=== PATIENT | female | born 1940 | race Caucasian/White ===

== ENCOUNTER 2018-06-12 16:20 | Inpatient (IN) | payer MEDICARE, BC ==
[2018-06-12] MEDS ORDERED: Furosemide 40 MG/4 ML VIAL IVPUSH ONE (19:22)
[2018-06-12] MEDS ORDERED: Sodium Chloride 0.9% 50 ML IV SCH (19:30)
[2018-06-12] MEDS ORDERED: Furosemide 40 MG/4 ML VIAL ONE (19:55)
[2018-06-12] MEDS: Levofloxacin/Dextrose 5%-Water 750 MG in Premix Bag 1 BAG IV SCH (20:30)
[2018-06-12] MEDS ORDERED: Sodium Chloride 0.9% 1,000 ML IV SCH (20:37)
--- NOTE | 2018-06-12 23:42 | ER ---
HPI: A 77-year-old lady here with complaints of shortness of breath that has been ongoing for the last several days, getting worse. She states she really has not felt good for at least a couple of months. The patient has been coughing. Her daughter tells me that she had a pleural effusion last summer and it was drained in early March, but it did not really seem to help the patient. She has been a long-term smoker. The patient states that she gets very short of breath with any kind of movement. She is finding it hard to do just basic activities lately. Her appetite has been quite reduced, and she states it is hard to get enough air on a regular basis. PAST MEDICAL HISTORY: Hypertension and COPD. The patient's daughter tells me that she has not been seen for many years until the problems that she had this summer with which ended up being a scarring of the lungs and pleural effusion. She has been followed by a motorman/woman in [place] and in fact has an appointment there next Saturday for PFTs and an echocardiogram. The patient tells me that she just quit smoking again today. OBJECTIVE: GENERAL APPEARANCE: The patient is awake, she was in mild respiratory distress initially, but upon arrival, oxygen was applied at 3 L per nasal cannula. The patient's initial sats are 88% with the O2 applied it climbed up into the mid 90s. VITAL SIGNS: Blood pressure 163/71, respirations 36 initially, pulse 82, temp 100.1. Physical exam, oral mucous membranes are slightly dry. Tonsils are not enlarged or injected. Pharynx not inflamed. NECK: Supple. LUNGS: Reveals rhonchi throughout the lung gomez. I do not hear any wheezes. There is significantly reduced air exchange throughout the lung gomez. ABDOMEN: Soft, nontender. SKIN: Warm and dry. CARDIAC: Heart sounds distinct. S1, S2 present. No murmurs noted. LABORATORY DATA: Labs today include a CBC with a white count of 10.8; neutrophils are elevated at 79.2, resulting in a left shift. Comprehensive metabolic panel shows a sodium level of 132, slightly low; potassium is 5.3, slightly high. Kidney function, BUN is 28, creatinine 1.5, GFR is 33. Liver panel is normal. CT of the chest was obtained tonight showing a moderate left pleural effusion again and a new small right pleural effusion. There is significant atelectasis bilaterally which include rounded atelectasis which is hard to evaluate the underlying lung. There is also extensive calcified pleural plaque in the right hemithorax consistent with prior asbestos exposure. DIAGNOSES: 1. Chronic obstructive pulmonary disease. 2. Possible pneumonia. 3. Pleural effusions bilaterally with history of the same. TREATMENT PLAN: We will admit the patient for inpatient treatment. She will be started on IV antibiotics. I will give her some Lasix and see we can pull some of the fluid off her system with that, and the patient will be monitored closely. She will be given some IV fluids as well and further evaluation can be made over the course of the next day or so depending on if she responds to this initial treatment plan. CRS/MODL /[id number]
--- NOTE | 2018-06-13 01:12 | HP ---
HISTORY OF PRESENT ILLNESS: She is admitted through the emergency room as a direct admit for COPD, shortness of breath, pleural effusions, and weakness. The patient has been having problems with shortness of breath and weakness for several weeks. It has been slowly getting worse. She did have a pleural effusion in the right lung which was drained in March, but she and her daughter tell me that this did not seem to help her overall condition. She seems like she is slowly getting worse. She has been following Pulmonology in [place] and has an appointment next Saturday for pulmonary function testing and an echocardiogram. Labs done today reveal the patient has a left shift. She has a slightly low sodium level, a slightly high potassium level. Kidney function shows a BUN of 28, creatinine 1.5. She will be admitted. IV antibiotics will be started and a low rate of normal saline will be started at 50 mL/hour. I will try the patient on a dose of Lasix tonight and see if it helps with the rhonchi that was noticed in her lungs, and further decisions can be made tomorrow if she does not respond to the initial treatment. OBJECTIVE: GENERAL APPEARANCE: The patient is awake. She is pleasant. VITAL SIGNS: With oxygen on, her sats are good in the mid 90s; without it, they are in the upper 80s. LUNGS: Upon admission, lung exam reveals rhonchi are continuing to be present throughout the lung gomez. There is significantly reduced air exchange. CARDIAC: Heart sounds distinct without murmurs. SKIN: Warm and dry. ABDOMEN: Soft, nontender. HEENT: Oral mucous membranes are dry. Again, we will see how the patient responds to the initial treatment tonight, and further decisions can be made tomorrow as needed. CRS/MODL
[2018-06-13] MEDS: Sodium Chloride 0.9% 500 ML IV SCH ×2 (07:37→23:23)
[2018-06-13] MEDS ORDERED: Non-Formulary Medication 1 Each (Lisinopril [Lisinopril] 20 MG) PO SCH (08:00)
--- NOTE | 2018-06-13 11:36 | PCM.PN ---
- General Info Date of Service: 06/13/18 Admission Dx/Problem (Free Text): COPD, pleural effusion, shortness of breath. Subjective Update: States she slept well and if feeling some better. - Review of Systems General: Reports: No Symptoms HEENT: Reports: No Symptoms, Glasses Pulmonary: Reports: Shortness of Breath, Cough Cardiovascular: Reports: No Symptoms Gastrointestinal: Reports: No Symptoms Musculoskeletal: Reports: No Symptoms Skin: Reports: No Symptoms Neurological: Reports: No Symptoms Psychiatric: Reports: No Symptoms - Patient Data Vitals - Most Recent: Last Vital Signs Temp 97.3 F 06/12/18 20:15 Pulse 102 H 06/12/18 20:15 Resp 18 06/12/18 20:15 BP 140/73 06/12/18 20:15 Pulse Ox 97 06/12/18 20:15 Weight - Most Recent: 140 lb I&O - Last 24 Hours: Intake & Output 06/12/18 06/13/18 06/13/18 22:59 06:59 14:59 Intake Total 210 Balance 210 Lab Results Last 24 Hours: Laboratory Results - last 24 hr 06/12/18 06/12/18 06/12/18 Range/Units 17:10 17:10 17:10 WBC 10.8 D (4.0-11.0) K/uL RBC 5.36 (3.80-5.80) M/uL Hgb 15.9 (11.5-16.5) g/dL Hct 50.2 H (37.0-47.0) % MCV 94 (76-96) fL MCH 29.7 (27.0-32.0) pg MCHC 31.7 (31.0-35.0) g/dL RDW 16.4 H (11.0-16.0) % Plt Count 305 (150-500) K/uL MPV 9.4 (6.0-10.0) fL Neut % (Auto) 79.2 H (45.0-70.0) % Lymph % (Auto) 9.9 L (20.0-40.0) % [place] % (Auto) 10.0 (3.0-10.0) % Eos % (Auto) 0.3 L (1.0-5.0) % Baso % (Auto) 0.6 H (0.0-0.5) % Neut # (Auto) 8.53 H (2.00-7.50) K/uL Lymph # (Auto) 1.06 L (1.50-4.00) K/uL [place] # (Auto) 1.08 H (0.20-0.80) K/uL Eos # (Auto) 0.03 L (0.04-0.40) K/uL Baso # (Auto) 0.06 (0.02-0.10) K/uL Sodium 132 L (136-145) mmol/L Potassium 5.3 H D (3.5-5.1) mmol/L Chloride 93 L (98-107) mmol/L Carbon Dioxide 34.0 H (21.0-32.0) mmol/L Anion Gap 10.3 (5.0-15.0) mmol/L BUN 28 H D (8-26) mg/dL Creatinine 1.50 H D (0.55-1.02) mg/dL Est Cr Clr Drug Dosing TNP Estimated GFR (MDRD) 33 L (>60) MLS/MIN BUN/Creatinine Ratio 18.7 (6-25) Glucose 144 H D (74-100) mg/dL Lactic Acid 1.11 (0.90-1.70) mmol/L Calcium 8.5 (8.5-10.1) mg/dL Total Bilirubin 0.5 (0.0-1.0) mg/dL AST 23 (15-37) U/L ALT 22 (12-78) U/L Alkaline Phosphatase 67 (46-116) U/L Total Protein 7.2 (6.4-8.2) g/dL Albumin 3.2 L (3.4-5.0) g/dL Globulin 4.0 (2.2-4.2) g/dL Albumin/Globulin Ratio 0.8 (0.8-2.0) 06/13/18 06/13/18 Range/Units 09:10 09:10 WBC 14.3 H D (4.0-11.0) K/uL RBC 5.11 (3.80-5.80) M/uL Hgb 15.2 (11.5-16.5) g/dL Hct 48.8 H (37.0-47.0) % MCV 96 (76-96) fL MCH 29.7 (27.0-32.0) pg MCHC 31.1 (31.0-35.0) g/dL RDW 16.3 H (11.0-16.0) % Plt Count 271 (150-500) K/uL MPV 9.2 (6.0-10.0) fL Neut % (Auto) 86.4 H (45.0-70.0) % Lymph % (Auto) 4.7 L (20.0-40.0) % [place] % (Auto) 8.2 (3.0-10.0) % Eos % (Auto) 0.4 L (1.0-5.0) % Baso % (Auto) 0.3 (0.0-0.5) % Neut # (Auto) 12.36 H (2.00-7.50) K/uL Lymph # (Auto) 0.67 L (1.50-4.00) K/uL [place] # (Auto) 1.17 H (0.20-0.80) K/uL Eos # (Auto) 0.06 (0.04-0.40) K/uL Baso # (Auto) 0.05 (0.02-0.10) K/uL Sodium 137 (136-145) mmol/L Potassium 4.1 D (3.5-5.1) mmol/L Chloride 95 L (98-107) mmol/L Carbon Dioxide 41.3 H D (21.0-32.0) mmol/L Anion Gap 4.8 L (5.0-15.0) mmol/L BUN 20 D (8-26) mg/dL Creatinine 1.04 H D (0.55-1.02) mg/dL Est Cr Clr Drug Dosing 36.28 Estimated GFR (MDRD) 51 L (>60) MLS/MIN BUN/Creatinine Ratio 19.2 (6-25) Glucose 151 H (74-100) mg/dL Lactic Acid (0.90-1.70) mmol/L Calcium 8.0 L (8.5-10.1) mg/dL Total Bilirubin (0.0-1.0) mg/dL AST (15-37) U/L ALT (12-78) U/L Alkaline Phosphatase (46-116) U/L Total Protein (6.4-8.2) g/dL Albumin (3.4-5.0) g/dL Globulin (2.2-4.2) g/dL Albumin/Globulin Ratio (0.8-2.0) Med Orders - Current: Current Medications Albuterol/Ipratropium (Duoneb 3.0-0.5 Mg/3 Ml) 3 ml NEB Q4H PRN PRN Reason: Shortness of Breath Levofloxacin/Dextrose 750 mg/ (Premix) 150 mls @ 150 mls/hr IV Q24H [facility] Stop: 06/19/18 19:31 Last Admin: 06/12/18 20:30 Dose: 150 mls/hr Sodium Chloride (Normal Saline) 500 mls @ 50 mls/hr IV ASDIRECTED [facility] Last Admin: 06/13/18 07:37 Dose: 50 mls/hr Non-Formulary Medication (Lisinopril [Lisinopril]) 20 mg PO DAILY [facility] Last Admin: 06/13/18 09:15 Dose: 20 mg Discontinued Medications Furosemide (Lasix) 40 mg IVPUSH ONETIME ONE Stop: 06/12/18 19:23 Last Admin: 06/12/18 19:40 Dose: 40 mg Furosemide (Lasix) Confirm Administered Dose 40 mg .ROUTE .STK-MED ONE Stop: 06/12/18 19:56 Last Admin: 06/12/18 20:37 Dose: Not Given Sodium Chloride (Normal Saline) 50 mls @ 50 mls/hr IV ASDIRECTED [facility] Sodium Chloride (Normal Saline) 1,000 mls @ 50 mls/hr IV ASDIRECTED [facility] - Exam Quality Assessment: Supplemental Oxygen General: Alert, Oriented, Cooperative HEENT: Mucous Membr. Moist/[place] Neck: Supple, Trachea Midline Lungs: Normal Respiratory Effort, Decreased Breath Sounds Cardiovascular: Regular Rate, Murmurs (systolic murmur noted.) GI/Abdominal Exam: Normal Bowel Sounds, Soft, Non-Tender Extremities: Normal Inspection, Non-Tender, No Pedal Edema, Normal Capillary Refill Skin: Warm, Dry Psy/Mental Status: Alert, Normal Affect, Normal Mood - Problem List & Annotations (1) COPD (chronic obstructive pulmonary disease) SNOMED Code(s): 03483558 Code(s): J44.9 - CHRONIC OBSTRUCTIVE PULMONARY DISEASE, UNSPECIFIED Status : Acute Current Visit: Yes (2) Pleural effusion SNOMED Code(s): 91853373 Code(s): J90 - PLEURAL EFFUSION, NOT ELSEWHERE CLASSIFIED Status: Acute Current Visit: Yes (3) Weakness SNOMED Code(s): 07354096 Code(s): R53.1 - WEAKNESS Status: Acute Current Visit: Yes - Problem List Review Problem List Initiated/Reviewed/Updated: Yes - Assessment Assessment:: COPD exacerbation and pleural effusion with weakness and shortness of breath. - Plan Plan:: COPD exacerbation and plerual effusion: Levofloxacin 750 mg IV Nebulizer as needed prn. Chest x-ray today and in am CBC today and in am. I did contact the pulmonary department at [place], [place]. The provider isn't in today, but the nurse did call and states her phone number is [phone] and name is Hortencia. States pt was scheduled for echo and PFT on Saturday and would be unable to complete this if she is having symptoms. Pt did have a thoracentesis on 04-09-2018. I did consult Dr Torres in regards to pt and updated POC to include x-ray today and in am and repeat CBC in am. Pt may need a change in her antibiotic if the WBC is still elevated. I did visit with the pt and daughter about pt status and POC.
[2018-06-13] MEDS: Albuterol/Ipratropium 3.0-0.5 MG/3 ML Neb Soln NEB PRN ×2 (15:27→22:58)
[2018-06-13] MEDS: Levofloxacin/Dextrose 5%-Water 750 MG in Premix Bag 1 BAG IV SCH ×2 (15:28→19:06)
[2018-06-14] MEDS ORDERED: Lisinopril 20 MG Tab PO SCH (08:00)
[2018-06-14] MEDS: Sodium Chloride 0.9% 500 ML IV SCH (09:30)
--- NOTE | 2018-06-14 11:37 | PCM.DCSUM1 ---
Discharge Summary - Hospital Course HPI Initial Comments: This 77 yr female presents with COPD and pleural effusion with shortness of breath and weakness. BP today 100/70 to 120/50, SpO2 =90-94% and carbon dioxide of 42.9 today. X-ray today with left lung full today and yesterday was about 50%. Discussed pt status with Dr Torres and transfer to facility for pulmonology assist. Pt is alert and has had breakfast today and sitting in the chair. Discussed pt transfer to one call in [facility] Dr. Guerrier states he is able to accept the transfer. Pt will go by road ambulance with RN available. Diagnosis: Stroke: No - Discharge Data Discharge Date: 06/14/18 Discharge Disposition: DC/Tfer to Acute Hospital 02 Condition: Fair - Discharge Diagnosis/Problem(s) (1) COPD (chronic obstructive pulmonary disease) SNOMED Code(s): 53817200 ICD Code: J44.9 - CHRONIC OBSTRUCTIVE PULMONARY DISEASE, UNSPECIFIED Status : Acute Current Visit: Yes (2) Pleural effusion SNOMED Code(s): 68067857 ICD Code: J90 - PLEURAL EFFUSION, NOT ELSEWHERE CLASSIFIED Status: Acute Current Visit: Yes (3) Weakness SNOMED Code(s): 54402140 ICD Code: R53.1 - WEAKNESS Status: Acute Current Visit: Yes - Patient Instructions Diet: Heart Healthy Diet Driving: Do Not Drive - Discharge Plan *PRESCRIPTION DRUG MONITORING PROGRAM REVIEWED*: Not Applicable *COPY OF PRESCRIPTION DRUG MONITORING REPORT IN PATIENT FAYE: Not Applicable Home Medications: Home Meds Lisinopril 20 mg PO DAILY 06/12/18 [History] Patient Handouts: Pleural Effusion, Pulmonary Function Tests Forms: ED Department Discharge Referrals: PCP,None [Primary Care Provider] - - General Info Date of Service: 06/14/18 Admission Dx/Problem (Free Text: COPD, pleural effusion, shortness of breath. Subjective Update: Pt states she is short of breath today, but she states she slept well and had her breakfast. has been in to see a few times today. Functional Status: Reports: Pain Controlled, Tolerating Diet, Incentive Spirometry - Review of Systems General: Reports: Weakness HEENT: Reports: No Symptoms Pulmonary: Reports: Shortness of Breath, Cough Cardiovascular: Reports: Dyspnea on Exertion. Denies: Chest Pain Gastrointestinal: Reports: No Symptoms Genitourinary: Reports: No Symptoms Musculoskeletal: Reports: No Symptoms Skin: Reports: No Symptoms Neurological: Reports: No Symptoms Psychiatric: Reports: Other (intermittent confusion) - Patient Data Vitals - Most Recent: Last Vital Signs Temp 99.3 F 06/14/18 11:25 Pulse 99 06/14/18 11:25 Resp 24 H 06/14/18 11:25 BP 116/44 L 06/14/18 11:25 Pulse Ox 92 L 06/14/18 11:25 Weight - Most Recent: 140 lb I&O - Last 24 hours: Intake & Output 06/13/18 06/14/18 06/14/18 22:59 06:59 14:59 Intake Total 720 Output Total 550 Balance 170 Lab Results - Last 24 hrs: Laboratory Results - last 24 hr 06/13/18 06/14/18 06/14/18 Range/Units 15:56 10:30 10:40 WBC 10.5 D (4.0-11.0) K/uL RBC 4.81 (3.80-5.80) M/uL Hgb 14.3 (11.5-16.5) g/dL Hct 48.4 H (37.0-47.0) % MCV 101 H (76-96) fL MCH 29.7 (27.0-32.0) pg MCHC 29.5 L (31.0-35.0) g/dL RDW 16.4 H (11.0-16.0) % Plt Count 209 D (150-500) K/uL MPV 9.4 (6.0-10.0) fL Neut % (Auto) 83.4 H (45.0-70.0) % Lymph % (Auto) 5.4 L (20.0-40.0) % [place] % (Auto) 10.7 H (3.0-10.0) % Eos % (Auto) 0.3 L (1.0-5.0) % Baso % (Auto) 0.2 (0.0-0.5) % Neut # (Auto) 8.78 H (2.00-7.50) K/uL Lymph # (Auto) 0.57 L (1.50-4.00) K/uL [place] # (Auto) 1.13 H (0.20-0.80) K/uL Eos # (Auto) 0.03 L (0.04-0.40) K/uL Baso # (Auto) 0.02 (0.02-0.10) K/uL Sodium 140 (136-145) mmol/L Potassium 4.6 (3.5-5.1) mmol/L Chloride 99 (98-107) mmol/L Carbon Dioxide 42.9 H (21.0-32.0) mmol/L Anion Gap 2.7 L (5.0-15.0) mmol/L BUN 12 D (8-26) mg/dL Creatinine 0.71 D (0.55-1.02) mg/dL Est Cr Clr Drug Dosing 53.15 mL/min Estimated GFR (MDRD) > 60 (>60) MLS/MIN BUN/Creatinine Ratio 16.9 (6-25) Glucose 196 H (74-100) mg/dL Calcium 7.8 L (8.5-10.1) mg/dL Urine Color Yellow Urine Appearance Clear (CLEAR) Urine pH 5.5 (5.0-8.0) Ur Specific [place] 1.025 (1.003-1.030) Urine Protein Negative (NEGATIVE) mg/dL Urine Glucose (UA) Negative (NEGATIVE) mg/dL Urine Ketones Negative (NEGATIVE) mg/dL Urine Occult Blood Moderate H (NEGATIVE) Urine Nitrite Negative (NEGATIVE) Urine Bilirubin Negative (NEGATIVE) Urine Urobilinogen 0.2 (0.2-1.0) E.U./dL Ur Leukocyte Esterase Small H (NEGATIVE) Urine RBC 30-40 H /HPF Urine WBC 20-30 H /HPF Ur Squamous Epith Cells Few /HPF Med Orders - Current: Current Medications Albuterol/Ipratropium (Duoneb 3.0-0.5 Mg/3 Ml) 3 ml NEB Q4H PRN PRN Reason: Shortness of Breath Last Admin: 06/13/18 22:58 Dose: 3 ml Levofloxacin/Dextrose 750 mg/ (Premix) 150 mls @ 150 mls/hr IV Q24H [facility] Stop: 18 19:31 Last Admin: 06/13/18 19:06 Dose: Not Given Sodium Chloride (Normal Saline) 500 mls @ 50 mls/hr IV ASDIRECTED [facility] Last Admin: 06/14/18 09:30 Dose: 50 mls/hr Lisinopril (Prinivil) 20 mg PO DAILY [facility] Last Admin: 06/14/18 08:30 Dose: Not Given Discontinued Medications Furosemide (Lasix) 40 mg IVPUSH ONETIME ONE Stop: 06/12/18 19:23 Last Admin: 06/12/18 19:40 Dose: 40 mg Furosemide (Lasix) Confirm Administered Dose 40 mg .ROUTE .STK-MED ONE Stop: 06/12/18 19:56 Last Admin: 06/12/18 20:37 Dose: Not Given Sodium Chloride (Normal Saline) 50 mls @ 50 mls/hr IV ASDIRECTED [facility] Sodium Chloride (Normal Saline) 1,000 mls @ 50 mls/hr IV ASDIRECTED [facility] Non-Formulary Medication (Lisinopril [Lisinopril]) 20 mg PO DAILY [facility] Last Admin: 06/13/18 09:15 Dose: 20 mg - Exam Quality Assessment: Reports: Supplemental Oxygen, Urine Catheter General: Reports: Alert, Oriented, Cooperative HEENT: Reports: Mucous Membr. Moist/[place] Neck: Reports: Supple, Trachea Midline Lungs: Reports: Decreased Breath Sounds Cardiovascular: Reports: Regular Rate, Regular Rhythm, Murmurs GI/Abdominal Exam: Soft, Non-Tender Back Exam: Reports: Normal Inspection, Full Range of Motion Extremities: Normal Inspection, Normal Range of Motion, No Pedal Edema, Normal Capillary Refill, Other (bruising to left arm, possibly from peripheral venipuncture.) Skin: Reports: Warm, Dry Neurological: Reports: No New Focal Deficit Psy/Mental Status: Reports: Alert, Normal Affect, Normal Mood
[2018-06-14] MEDS: Albuterol/Ipratropium 3.0-0.5 MG/3 ML Neb Soln NEB PRN (11:39)
[2018-06-14] MEDS ORDERED: Morphine 10 MG/ML Syringe ONE (12:01)
[2018-06-14] MEDS ORDERED: LORazepam 2 MG/ML SDV ONE (12:01)
[2018-06-14] MEDS ORDERED: Albuterol 0.083% 2.5 MG/3 ML Neb Soln ONE (12:20)
--- NOTE | 2018-06-15 09:42 | CR ---
DATE OF SERVICE: 06/13/18 CLINICAL DATA: shortness of breath PA AND LATERAL CHEST: Comparison is made to a prior exam dated 06/12/18. There is progressive infiltrate and consolidation in the right lower lung and within the left mid and lower lung. There are persistent bilateral pleural effusions. The left has increased. The exam is otherwise unchanged. Continued follow-up is recommended. [id number] [facility]
--- NOTE | 2018-06-15 09:47 | CT ---
DATE OF SERVICE: 06/12/18 CLINICAL DATA: SOB. Lung Congestion UNENHANCED CHEST CT: Multi slice acquisition through the chest without IV contrast was performed. Comparison is made to a prior enhanced chest CT dated 03/27/18. There is a small left pleural effusion. It has decreased in volume from the prior study. There is a right pleural effusion on today's exam. It was not present on the prior exam. The majority of the fluid appears to be loculated within the major fissure on the right. There are persistent areas of consolidation within the lingular segment of the left upper lobe and left lower lobe with atelectasis at the left lower lobe. This does not appear significantly changed from the prior study. There is also an area of atelectasis and consolidation within the right lung base posteriorly. Pneumonia should be considered. The heart remains enlarged, unchanged. No hilar or mediastinal adenopathy. The exam is otherwise unchanged from the prior. [id number] [facility]
--- NOTE | 2018-06-15 09:51 | CR ---
DATE OF SERVICE: 06/14/18 CLINICAL DATA: shortness of breath PA AND LATERAL CHEST: Comparison is made to a prior exam dated 06/13/18. There is progressive consolidation of the left lung with near total opacification of the left hemithorax and no residual aerated lung on the left. There is also progressive infiltrate and consolidation in the right lung base. There is a persistent small right pleural effusion. The exam is otherwise unchanged from the previous. [id number] [facility]
== END 2018-06-14 12:24 | DRG 191 ==
LOC: LB.ED 16:20 → LB.MS 19:10 → LB.ED 19:30 → LB.MS 20:06 → UNDOADMIN 20:06
PROVIDERS: ADMIT Nurse Practitioner Family; ATTEND Nurse Practitioner Family
DX: J44.0 Chronic obstructive pulmonary disease with (acute) lower respiratory infection (principal); J18.9 Pneumonia, unspecified organism; J44.1 Chronic obstructive pulmonary disease with (acute) exacerbation; J90 Pleural effusion, not elsewhere classified; F17.200 Nicotine dependence, unspecified, uncomplicated; R06.03 Acute respiratory distress; R05 Cough; R06.02 Shortness of breath; I10 Essential (primary) hypertension; R53.1 Weakness; Z79.899 Other long term (current) drug therapy
CPT/HCPCS: 36415; 51702; 71046; 71250; 80048; 80053; 81001; 83605; 85025; 87086; 99285-25; A0425; A0429; A9270-GY; J1940; J1956; J7050; J7620-GY

== ENCOUNTER 2019-12-23 19:01 | Inpatient (IN) | payer MEDICARE, BC, OTHER ==
[2019-12-23] MEDS ORDERED: Azithromycin 500 MG AdvVial IV SCH (21:45)
[2019-12-23] MEDS ORDERED: Sodium Chloride 0.9% 1,000 ML IV SCH (21:45)
--- NOTE | 2019-12-23 22:13 | ADMIT ---
HISTORY OF PRESENT ILLNESS: This 79-year-old lady was admitted through the emergency room with diagnosis of pneumonia, causing hypoxia and mild dehydration and weakness. The patient came in a groggy state with duskiness of her face and hands. Nursing staff applied oxygen at 5 L and within minutes, the patient became alert and had better color in her hands and she has been maintaining O2 sats around 91% with 5 L of oxygen. Chest x-ray shows what looks like an infiltrate in the left lower lobe with a small effusion in the right lower lobe and labs show a slightly elevated white count and elevated neutrophils. Some labs are still pending that include a basic metabolic panel and a BNP. The patient will be admitted for IV antibiotics, starting her on Rocephin and Zithromax. We will give her a low rate of normal saline at 30 mL an hour and we will keep her on oxygen overnight monitoring her sats. The patient has been resting comfortably since she has the oxygen applied other than an occasional coarse sounding cough. Vital signs show an initial blood pressure of 122/55, pulse 96, respiration started around at 34, but improved after monitoring the patient for a while. CRS/MODL /[id number]
--- NOTE | 2019-12-23 22:13 | PN ---
DATE OF VISIT: 12/23/2019 HISTORY OF PRESENT ILLNESS: An 79-year-old lady who comes in with her son and other family members with complaints of feeling horrible. She has been short of breath. Family members tell me that she, they have noticed, is dusky, sensation to her hands and her face, and her hands have been cool. She seems sleepy and tired upon arriving to the emergency room. Nursing staff could not get an O2 saturation initially and they applied oxygen at 5 L per nasal cannula, and the patient perked up within minutes. By the time I got to the emergency room, the patient is awake and talking, telling me she does not feel well and has not for several days. Her son tells me that she usually smokes 2 or 3 packs of cigarettes a day. She rolls her own cigarettes. The last 4 days, she has not had the energy to this. The patient does have history of COPD; history of pleural effusion, needing thoracentesis on a couple of different occasions; and history of weakness as well as hypertension. OBJECTIVE: GENERAL APPEARANCE: The patient is awake. She is pleasant and talkative. She has a congested-sounding occasional cough. VITAL SIGNS: Show blood pressure is 122/55, O2 sats are 91% on 5 L, respirations 34, pulse 96. LUNGS: Have severely reduced air exchange throughout the lung gomez. I can hear a little bit of rhonchi in both bases. I do not hear any obvious wheezing. CARDIAC: Heart sounds distinct. S1, S2 present. No obvious murmurs noted. HEENT: Oral mucous membranes are dry. ABDOMEN: Soft, nontender. SKIN: Warm and dry. LABORATORY DATA: Labs include a CBC showing a slightly elevated white count of 11.2, neutrophils are also up at 81.6. Basic metabolic panel and a BNP are still pending. A chest x-ray is obtained showing what looks like pneumonia in the left lower lobe with a small effusion in the right lower lobe. DIAGNOSES: 1. Pneumonia. 2. Dehydration. TREATMENT PLAN: The patient is resting quietly at this point. The oxygen has helped her a lot. We had a discussion about treating as an inpatient versus outpatient, but it turns out she does not have oxygen at home, and we cannot send it with her on short notice. Therefore, she will be admitted to the hospital for inpatient treatment, keeping her on oxygen, IV antibiotics, and a small amount of fluid rehydration. CRS/MODL /[id number]
[2019-12-23] MEDS: cefTRIAXone 1 GM in Sodium Chloride 0.9% 50 ML IV SCH (23:06)
[2019-12-23] MEDS: Nicotine 21 MG/24 Hr Patch TRDERM SCH (23:06)
[2019-12-23] MEDS: Azithromycin 500 MG in Sodium Chloride 0.9% 250 ML IV SCH (23:07)
--- NOTE | 2019-12-24 09:07 | PCM.PN ---
- General Info Date of Service: 12/24/19 Admission Dx/Problem (Free Text): Pneumonia Subjective Update: Patient continues to have coarse cough; requiring 35% oxygen via mask to keep SaO2 greater than 90%. Patient confused but at baseline this morning according to nursing. Functional Status: Reports: Pain Controlled - Review of Systems General: Denies: Fever HEENT: Denies: Ear Pain, Eye Pain, Headaches Pulmonary: Reports: Shortness of Breath, Cough, Sputum Cardiovascular: Denies: No Symptoms Gastrointestinal: Denies: No Symptoms Genitourinary: Denies: No Symptoms Musculoskeletal: Denies: No Symptoms Skin: Denies: No Symptoms Neurological: Reports: Confusion - Patient Data Vitals - Most Recent: Last Vital Signs Temp 36.3 C 12/24/19 07:39 Pulse 100 12/24/19 07:39 Resp 22 H 12/24/19 07:39 BP 132/60 12/24/19 07:39 Pulse Ox 84 L 12/24/19 07:39 Weight - Most Recent: 53.705 kg I&O - Last 24 Hours: Intake & Output 12/23/19 12/24/19 12/24/19 22:59 06:59 14:59 Intake Total 440 Balance 440 Lab Results Last 24 Hours: Laboratory Results - last 24 hr 12/23/19 12/23/19 12/23/19 Range/Units 20:39 20:39 20:39 WBC 11.2 H D (4.0-11.0) K/uL RBC 5.42 (3.80-5.80) M/uL Hgb 16.9 H (11.5-16.5) g/dL Hct 53.6 H (37.0-47.0) % MCV 99 H (76-96) fL MCH 31.2 (27.0-32.0) pg MCHC 31.5 (31.0-35.0) g/dL RDW 18.7 H (11.0-16.0) % Plt Count 246 D (150-500) K/uL MPV 9.7 (6.0-10.0) fL Neut % (Auto) 81.6 H (45.0-70.0) % Lymph % (Auto) 8.1 L (20.0-40.0) % [place] % (Auto) 10.1 H (3.0-10.0) % Eos % (Auto) 0.0 L (1.0-5.0) % Baso % (Auto) 0.2 (0.0-0.5) % Neut # (Auto) 9.10 H (2.00-7.50) K/uL Lymph # (Auto) 0.90 L (1.50-4.00) K/uL [place] # (Auto) 1.13 H (0.20-0.80) K/uL Eos # (Auto) 0.00 L (0.04-0.40) K/uL Baso # (Auto) 0.02 (0.02-0.10) K/uL Sodium 138 (136-145) mmol/L Potassium 5.1 D (3.5-5.1) mmol/L Chloride 97 L (98-107) mmol/L Carbon Dioxide 34.2 H (21.0-32.0) mmol/L Anion Gap 11.9 (5.0-15.0) mmol/L BUN 59 H* D (8-26) mg/dL Creatinine 3.10 H* D (0.55-1.02) mg/dL Est Cr Clr Drug Dosing TNP Estimated GFR (MDRD) 14 L (>60) MLS/MIN BUN/Creatinine Ratio 19.0 (6-25) Glucose 116 H (74-100) mg/dL Calcium 8.6 (8.5-10.1) mg/dL B-Natriuretic Peptide 74029 H (0-450) pg/mL 12/24/19 Range/Units 07:45 WBC 12.1 H (4.0-11.0) K/uL RBC 5.34 (3.80-5.80) M/uL Hgb 16.5 (11.5-16.5) g/dL Hct 53.2 H (37.0-47.0) % MCV 100 H (76-96) fL MCH 30.9 (27.0-32.0) pg MCHC 31.0 (31.0-35.0) g/dL RDW 18.6 H (11.0-16.0) % Plt Count 205 (150-500) K/uL MPV 9.8 (6.0-10.0) fL Neut % (Auto) 83.4 H (45.0-70.0) % Lymph % (Auto) 7.1 L (20.0-40.0) % [place] % (Auto) 9.1 (3.0-10.0) % Eos % (Auto) 0.2 L (1.0-5.0) % Baso % (Auto) 0.2 (0.0-0.5) % Neut # (Auto) 10.05 H (2.00-7.50) K/uL Lymph # (Auto) 0.85 L (1.50-4.00) K/uL [place] # (Auto) 1.10 H (0.20-0.80) K/uL Eos # (Auto) 0.02 L (0.04-0.40) K/uL Baso # (Auto) 0.03 (0.02-0.10) K/uL Sodium (136-145) mmol/L Potassium (3.5-5.1) mmol/L Chloride (98-107) mmol/L Carbon Dioxide (21.0-32.0) mmol/L Anion Gap (5.0-15.0) mmol/L BUN (8-26) mg/dL Creatinine (0.55-1.02) mg/dL Est Cr Clr Drug Dosing Estimated GFR (MDRD) (>60) MLS/MIN BUN/Creatinine Ratio (6-25) Glucose (74-100) mg/dL Calcium (8.5-10.1) mg/dL B-Natriuretic Peptide (0-450) pg/mL Nolan Results Last 24 Hours: Microbiology 12/24/19 08:20 Influenza Type A Antigen Screen - Final Nasopharyngeal Swab NEGATIVE INFLUENZA A VIRUS AG REFERENCE RANGE: NEGATIVE Influenza Type B Antigen Screen - Final NEGATIVE INFLUENZA B VIRUS AG REFERENCE RANGE: NEGATIVE Med Orders - Current: Current Medications Acetaminophen (Tylenol) 650 mg PO Q4H PRN PRN Reason: Pain (Mild 1-3)/fever Albuterol/Ipratropium (Duoneb 3.0-0.5 Mg/3 Ml) 3 ml NEB QID PRN PRN Reason: Shortness Of Breath/wheezing Ceftriaxone Sodium 1 gm/ (Sodium Chloride) 50 mls @ 100 mls/hr IV Q24H [facility] Last Admin: 12/23/19 23:06 Dose: 100 mls/hr Sodium Chloride (Normal Saline) 1,000 mls @ 30 mls/hr IV ASDIRECTED [facility] Azithromycin 500 mg/ Sodium (Chloride) 250 mls @ 250 mls/hr IV Q24H [facility] Last Admin: 12/23/19 23:07 Dose: 250 mls/hr Nicotine (Habitrol) 21 mg TRDERM DAILY [facility] Last Admin: 12/23/19 23:06 Dose: 21 mg Non-Formulary Medication (Lisinopril [Lisinopril]) 20 mg PO DAILY [facility] Discontinued Medications Azithromycin (Zithromax) 500 mg IV Q24H [facility] - Exam Quality Assessment: Supplemental Oxygen General: Alert, Mild Distress HEENT: Pupils Equal, Pupils Reactive, EOMI Neck: Supple Lungs: Decreased Breath Sounds (left side), Rales (scattered in all gomez) Cardiovascular: Regular Rate, Regular Rhythm GI/Abdominal Exam: Soft, Non-Tender, No Distention Extremities: Normal Capillary Refill Skin: Warm, Dry Neurological: Other (baseline confusion) Sepsis Event Note - Evaluation Sepsis Screening Result: No Definite Risk - Focused Exam Vital Signs: Vital Signs Temp Temp Pulse Resp BP Pulse Ox 12/24/19 07:39 36.3 C 100 22 H 132/60 84 L 12/24/19 03:56 36.9 C 100 30 H 131/72 82 L 12/23/19 22:55 36.9 C 30 H 124/63 89 L 12/23/19 21:34 82 L Date Exam was Performed: 12/24/19 Time Exam was Performed: 09:09 - Problem List & Annotations (1) Pneumonia SNOMED Code(s): 912733487 Code(s): J18.9 - PNEUMONIA, UNSPECIFIED ORGANISM Status: Acute Priority: Medium Current Visit: Yes Qualifiers: Laterality: left Lung location: lower lobe of lung - Problem List Review Problem List Initiated/Reviewed/Updated: Yes - My Orders Last 24 Hours: My Active Orders 12/24/19 07:41 CORONAVIRUS COVID-19 PCR PHL [MREF] Stat - Plan Plan:: Oxygen to keep SaO2 greater than 90% COVID and influenza samples collected Continue with same plan
[2019-12-24] MEDS: Nicotine 21 MG/24 Hr Patch TRDERM SCH (09:20)
[2019-12-24] MEDS: Acetaminophen 325 MG Tab PO PRN (09:22)
[2019-12-24] MEDS ORDERED: Sodium Chloride 0.9% 1,000 ML IV SCH (10:30)
[2019-12-24] MEDS: Non-Formulary Medication 1 Each (Lisinopril [Lisinopril] 20 MG) PO SCH (13:29)
[2019-12-24] MEDS: cefTRIAXone 1 GM in Sodium Chloride 0.9% 50 ML IV SCH (21:30)
[2019-12-24] MEDS: Azithromycin 500 MG in Sodium Chloride 0.9% 250 ML IV SCH (22:29)
--- NOTE | 2019-12-25 00:34 | CR ---
CLINICAL DATA: SOB. AP CHEST, 23 DECEMBER 2019: Comparison is made to a prior exam dated June 14, 2018. The heart is enlarged. The aorta is calcified and ectatic. There are poorly defined infiltrates with consolidation in the right lower lobe and in the left mid and lower lung suspicious for pneumonia. Tumor cannot be excluded. There is pleural thickening and pleural calcification on the right. There is blunting of the left costophrenic angle, consistent with left pleural effusion or pleural scar. No pneumothorax. Job: [id number] MTDD
[2019-12-25] MEDS: Non-Formulary Medication 1 Each (Lisinopril [Lisinopril] 20 MG) PO SCH (10:28)
[2019-12-25] MEDS: Nicotine 21 MG/24 Hr Patch TRDERM SCH (10:42)
[2019-12-25] MEDS: Albuterol/Ipratropium 3.0-0.5 MG/3 ML Neb Soln NEB PRN (10:43)
--- NOTE | 2019-12-25 16:39 | PCM.PN ---
- General Info Date of Service: 12/25/19 Admission Dx/Problem (Free Text): Pneumonia Subjective Update: VSS, afebrile. Continues to have occasional cough but has been able to wean down on supplemental oxygen to 4 L per nasal cannula. Able to transfer with assistance this morning but more sleepy this afternoon requiring the assistance of 2 for transfer. Does respond to questions but does not open her eyes. Functional Status: Reports: Tolerating Diet - Review of Systems General: Denies: Fever HEENT: Reports: No Symptoms Pulmonary: Reports: Cough Cardiovascular: Denies: Chest Pain Gastrointestinal: Denies: Abdominal Pain, Diarrhea, Vomiting Musculoskeletal: Reports: No Symptoms Skin: Reports: No Symptoms Neurological: Reports: No Symptoms - Patient Data Vitals - Most Recent: Last Vital Signs Temp 36.2 C 12/25/19 12:00 Pulse 99 12/25/19 04:00 Resp 12 12/25/19 12:00 BP 100/50 L 12/25/19 12:00 Pulse Ox 96 12/25/19 12:00 Weight - Most Recent: 53.524 kg I&O - Last 24 Hours: Intake & Output 12/25/19 12/25/19 12/25/19 06:59 14:59 22:59 Intake Total 690 Output Total 300 Balance 690 -300 Nolan Results Last 24 Hours: Microbiology 12/24/19 09:55 MRSA Surveillance Culture - Final Axilla, Unspecified NO MRSA ISOLATED Med Orders - Current: Current Medications Acetaminophen (Tylenol) 650 mg PO Q4H PRN PRN Reason: Pain (Mild 1-3)/fever Last Admin: 12/24/19 09:22 Dose: 650 mg Albuterol/Ipratropium (Duoneb 3.0-0.5 Mg/3 Ml) 3 ml NEB QID PRN PRN Reason: Shortness Of Breath/wheezing Last Admin: 12/25/19 10:43 Dose: 3 ml Ceftriaxone Sodium 1 gm/ (Sodium Chloride) 50 mls @ 100 mls/hr IV Q24H [facility] Last Admin: 12/24/19 21:30 Dose: 100 mls/hr Sodium Chloride (Normal Saline) 1,000 mls @ 30 mls/hr IV ASDIRECTED [facility] Azithromycin 500 mg/ Sodium (Chloride) 250 mls @ 250 mls/hr IV Q24H [facility] Last Admin: 12/24/19 22:29 Dose: 250 mls/hr Sodium Chloride (Normal Saline) 1,000 mls @ 250 mls/hr IV ASDIRECTED [facility] Last Admin: 12/24/19 10:54 Dose: 250 mls/hr Nicotine (Habitrol) 21 mg TRDERM DAILY [facility] Last Admin: 12/25/19 10:42 Dose: 21 mg Non-Formulary Medication (Lisinopril [Lisinopril]) 20 mg PO DAILY [facility] Last Admin: 12/25/19 10:28 Dose: Not Given Discontinued Medications Azithromycin (Zithromax) 500 mg IV Q24H [facility] - Exam Quality Assessment: Supplemental Oxygen General: Lethargic HEENT: Pupils Equal, Pupils Reactive, EOMI, Mucous Membr. Moist/[place] Neck: Supple Lungs: Normal Respiratory Effort, Rhonchi Cardiovascular: Regular Rate, Regular Rhythm GI/Abdominal Exam: Soft, Non-Tender, No Distention Skin: Warm, Dry, Intact Neurological: No New Focal Deficit Sepsis Event Note - Evaluation Sepsis Screening Result: No Definite Risk - Focused Exam Vital Signs: Vital Signs Temp Temp Resp BP Pulse Ox 12/25/19 12:00 36.2 C 12 100/50 L 96 12/25/19 07:39 37.1 C 14 112/63 91 L Date Exam was Performed: 12/25/19 Time Exam was Performed: 16:33 - Problem List & Annotations (1) Pneumonia SNOMED Code(s): 026491463 Code(s): J18.9 - PNEUMONIA, UNSPECIFIED ORGANISM Status: Acute Priority: Medium Current Visit: Yes Qualifiers: Laterality: left Lung location: lower lobe of lung - Problem List Review Problem List Initiated/Reviewed/Updated: No - My Orders Last 24 Hours: My Active Orders 12/24/19 16:37 Admission Status [Patient Status] [ADT] Routine 12/24/19 16:40 Consult to Case Management/[place] [CONS] Routine - Assessment Assessment:: Pneumonia Waiting for placement - Plan Plan:: Oxygen to keep SaO2 greater than 90% COVID and influenza samples collected Continue with same plan 12/25/19 Continue with same plan
[2019-12-25] MEDS: cefTRIAXone 1 GM in Sodium Chloride 0.9% 50 ML IV SCH (22:28)
[2019-12-25] MEDS: Azithromycin 500 MG in Sodium Chloride 0.9% 250 ML IV SCH (22:56)
[2019-12-26] MEDS: Non-Formulary Medication 1 Each (Lisinopril [Lisinopril] 20 MG) PO SCH (08:02)
[2019-12-26] MEDS: Nicotine 21 MG/24 Hr Patch TRDERM SCH (09:16)
[2019-12-26] MEDS: Nystatin Topical Powder 15 GM Bottle TOP SCH ×2 (09:17→23:21)
[2019-12-26] MEDS: Albuterol/Ipratropium 3.0-0.5 MG/3 ML Neb Soln NEB PRN ×2 (17:42→23:30)
[2019-12-26] MEDS: Azithromycin 500 MG in Sodium Chloride 0.9% 250 ML IV SCH (23:18)
[2019-12-26] MEDS ORDERED: Sodium Chloride 0.9% 10 ML Syringe FLUSH PRN (23:19)
[2019-12-27] MEDS: cefTRIAXone 1 GM in Sodium Chloride 0.9% 50 ML IV SCH ×2 (00:31→22:30)
[2019-12-27] MEDS ORDERED: Furosemide 40 MG/4 ML VIAL IVPUSH ONE (01:14)
[2019-12-27] MEDS: Acetaminophen 325 MG Tab PO PRN ×2 (02:50→21:52)
[2019-12-27] MEDS ORDERED: Lisinopril 20 MG Tab ONE (07:47)
[2019-12-27] MEDS: Non-Formulary Medication 1 Each (Lisinopril [Lisinopril] 20 MG) PO SCH (07:55)
[2019-12-27] MEDS: Nicotine 21 MG/24 Hr Patch TRDERM SCH (08:45)
[2019-12-27] MEDS: Nystatin Topical Powder 15 GM Bottle TOP SCH ×2 (08:46→21:57)
--- NOTE | 2019-12-27 10:42 | CR ---
DATE OF SERVICE: 12/27/19 CLINICAL DATA: Congestion, cough AP CHEST: Comparison is made to a prior exam dated 12/23/19. The heart remains enlarged, unchanged. There is marked progressive infiltrate and consolidation of the left lung. There is also infiltrate and consolidation in the right mid and lower lung. There is a large left pleural effusion that has markedly increased in volume from the prior study. There is a small right pleural effusion. The exam is otherwise unchanged from the prior. Continued followup is recommended. [id number] [facility]
[2019-12-27] MEDS ORDERED: methylPREDNISolone Sodium Succinate 125 MG/2 ML SDV ONE (11:33)
--- NOTE | 2019-12-27 11:37 | PCM.PN ---
- General Info Date of Service: 12/27/19 Admission Dx/Problem (Free Text): Pneumonia Congestive Heart Failure Subjective Update: This patient had some increase in her work of breathing during the night with nursing report of increased coarseness in breath sounds. She was given lasix 40 mg IV at 0123. Her vitals have been stable and unchanged, afebrile. Labs and CXR obtained this morning and reviewed. - Review of Systems General: Denies: Fever HEENT: Reports: No Symptoms Pulmonary: Reports: Cough Cardiovascular: Reports: No Symptoms Gastrointestinal: Reports: No Symptoms Musculoskeletal: Reports: No Symptoms Skin: Denies: Cyanosis Neurological: Reports: No Symptoms - Patient Data Vitals - Most Recent: Last Vital Signs Temp 36.9 C 12/27/19 08:00 Pulse 95 12/27/19 08:00 Resp 24 H 12/27/19 08:00 BP 143/84 H 12/27/19 08:00 Pulse Ox 89 L 12/27/19 08:00 Weight - Most Recent: 53.524 kg I&O - Last 24 Hours: Intake & Output 12/26/19 12/27/19 12/27/19 22:59 06:59 14:59 Intake Total 300 540 Output Total 400 150 Balance -100 390 Lab Results Last 24 Hours: Laboratory Results - last 24 hr 12/27/19 12/27/19 Range/Units 09:00 09:01 WBC 8.8 D (4.0-11.0) K/uL RBC 5.22 (3.80-5.80) M/uL Hgb 16.3 (11.5-16.5) g/dL Hct 56.7 H (37.0-47.0) % MCV 109 H (76-96) fL MCH 31.2 (27.0-32.0) pg MCHC 28.7 L (31.0-35.0) g/dL RDW 18.0 H (11.0-16.0) % Plt Count 134 L D (150-500) K/uL MPV 9.8 (6.0-10.0) fL Add Manual Diff Yes Neutrophils % (Manual) 80.0 H (45.0-70.0) % Lymphocytes % (Manual) 8.0 L (20.0-40.0) % Monocytes % (Manual) 11.0 H (3.0-10.0) % Eosinophils % (Manual) 1.0 (1.0-5.0) % Platelet Estimate Decreased L Sodium 146 H (136-145) mmol/L Potassium 4.8 (3.5-5.1) mmol/L Chloride 105 (98-107) mmol/L Carbon Dioxide 43.1 H D (21.0-32.0) mmol/L Anion Gap 2.7 L (5.0-15.0) mmol/L BUN 32 H D (8-26) mg/dL Creatinine 0.81 D (0.55-1.02) mg/dL Est Cr Clr Drug Dosing 46.02 mL/min Estimated GFR (MDRD) > 60 (>60) MLS/MIN BUN/Creatinine Ratio 39.5 H (6-25) Glucose 120 H (74-100) mg/dL Calcium 9.1 (8.5-10.1) mg/dL B-Natriuretic Peptide 7954 H D (0-450) pg/mL Nolan Results Last 24 Hours: Microbiology 12/24/19 07:41 Coronavirus RNA (PCR) - Final Nasopharynx, Unspecified Med Orders - Current: Current Medications Acetaminophen (Tylenol) 650 mg PO Q4H PRN PRN Reason: Pain (Mild 1-3)/fever Last Admin: 12/27/19 02:50 Dose: 650 mg Albuterol/Ipratropium (Duoneb 3.0-0.5 Mg/3 Ml) 3 ml NEB QID PRN PRN Reason: Shortness Of Breath/wheezing Last Admin: 12/26/19 23:30 Dose: 3 ml Ceftriaxone Sodium 1 gm/ (Sodium Chloride) 50 mls @ 100 mls/hr IV Q24H [facility] Last Admin: 12/27/19 00:31 Dose: 100 mls/hr Sodium Chloride (Normal Saline) 1,000 mls @ 30 mls/hr IV ASDIRECTED [facility] Last Admin: 12/25/19 22:26 Dose: 30 mls/hr Azithromycin 500 mg/ Sodium (Chloride) 250 mls @ 250 mls/hr IV Q24H [facility] Last Admin: 12/26/19 23:18 Dose: 250 mls/hr Sodium Chloride (Normal Saline) 1,000 mls @ 250 mls/hr IV ASDIRECTED [facility] Last Admin: 12/24/19 10:54 Dose: 250 mls/hr Methylprednisolone Sodium Succinate (Solu-Medrol) 125 mg IVPUSH Q8H [facility] Nicotine (Habitrol) 21 mg TRDERM DAILY [facility] Last Admin: 12/27/19 08:45 Dose: 21 mg Non-Formulary Medication (Lisinopril [Lisinopril]) 20 mg PO DAILY [facility] Last Admin: 12/27/19 07:55 Dose: 20 mg Nystatin (Nystop) 0 gm TOP BID [facility] Last Admin: 12/27/19 08:46 Dose: 1 applic Sodium Chloride (Saline Flush) 10 ml FLUSH BID PRN PRN Reason: Keep Vein Open Last Admin: 12/26/19 23:15 Dose: 10 ml Discontinued Medications Azithromycin (Zithromax) 500 mg IV Q24H [facility] Furosemide (Lasix) 40 mg IVPUSH NOW ONE Stop: 12/27/19 01:15 Last Admin: 12/27/19 01:23 Dose: 40 mg Lisinopril (Prinivil) Confirm Administered Dose 20 mg .ROUTE .STK-MED ONE Stop: 12/27/19 07:48 Last Admin: 12/27/19 08:46 Dose: Not Given - Exam Quality Assessment: Supplemental Oxygen General: Alert, Oriented HEENT: Pupils Equal, Pupils Reactive, EOMI, Mucous Membr. Moist/[place] Neck: Supple Lungs: Normal Respiratory Effort, Other (poor air exchange on left, right good air exchange with rales) Cardiovascular: Regular Rate, Regular Rhythm GI/Abdominal Exam: Soft, Non-Tender, No Distention Skin: Warm, Dry, Intact Neurological: No New Focal Deficit Psy/Mental Status: Alert, Normal Affect Sepsis Event Note - Evaluation Sepsis Screening Result: Sepsis Risk - Focused Exam Vital Signs: Vital Signs Temp Pulse Pulse Resp BP Pulse Ox 12/27/19 08:00 36.9 C 95 24 H 143/84 H 89 L 12/27/19 04:00 37.1 C 108 H 24 H 92 L 12/27/19 02:00 98 26 H 127/58 L 94 L 12/26/19 23:46 93 L 12/26/19 23:41 36.8 C 100 24 H 112/50 L 94 L 12/26/19 23:35 99 27 H 92 L Date Exam was Performed: 12/27/19 Time Exam was Performed: 11:39 - Problem List & Annotations (1) Pneumonia SNOMED Code(s): 477926762 Code(s): J18.9 - PNEUMONIA, UNSPECIFIED ORGANISM Status: Acute Priority: Medium Current Visit: Yes Qualifiers: Laterality: left Lung location: lower lobe of lung - Problem List Review Problem List Initiated/Reviewed/Updated: No - My Orders Last 24 Hours: My Active Orders 12/26/19 23:19 Sodium Chloride 0.9% [Saline Flush] 10 ml FLUSH BID PRN 12/27/19 11:30 Height and Weight [RC] DAILY Chest wo Cont [CT] Routine 12/27/19 11:45 methylPREDNISolone Sod Succ [Solu-MEDROL] 125 mg IVPUSH Q8H - Assessment Assessment:: Pneumonia Waiting for placement 12/27/2019 pneumonia CHD - Plan Plan:: Oxygen to keep SaO2 greater than 90% COVID and influenza samples collected Continue with same plan 12/26/19 Continue with same plan 12/27/2019 Patient's clinical picture has improved some; however, her CXR shows significant pathology on left side. Consulted via phone with Dr. Vela, [facility]ist who reviewed films, labs, and clinical findings with me. Plan: 1) Chest CT with contrast 2) Continue antibiotics 3) Start solumedrol, 125 mg q. 8 4) Daily weights 5) Strict I&O
[2019-12-27] MEDS: methylPREDNISolone Sodium Succinate 125 MG/2 ML SDV IVPUSH SCH ×2 (11:45→21:00)
[2019-12-27] MEDS ORDERED: Sodium Chloride 0.9% 50 ML SDV FLUSH ONE (11:47)
[2019-12-27] MEDS: Albuterol/Ipratropium 3.0-0.5 MG/3 ML Neb Soln NEB PRN ×2 (14:43→21:58)
[2019-12-27] MEDS ORDERED: LORazepam 2 MG/ML SDV IVPUSH PRN (21:04)
[2019-12-27] MEDS: Azithromycin 500 MG in Sodium Chloride 0.9% 250 ML IV SCH (21:12)
--- NOTE | 2019-12-28 01:07 | PCM.SN ---
- Free Text/Narrative Note: Called to bedside by nursing at approximately 2400. Patient respiratory status significantly changed; respirations shallow and gasping with decrease in saturations. Family notified.
[2019-12-28] MEDS: methylPREDNISolone Sodium Succinate 125 MG/2 ML SDV IVPUSH SCH (03:57)
--- NOTE | 2019-12-28 08:40 | CT ---
DATE OF SERVICE: 12/27/2019 CLINICAL DATA: Congestion, cough Enhanced chest CT: Multislice acquisition through the chest with IV contrast was performed. Comparison made to prior unenhanced chest CT dated 06/12/2018. Motion artifact degrades image quality. No evidence of PE in the proximal pulmonary arteries. No pneumothorax. There is near total consolidation of the left lower lobe. There is also extensive atelectasis and consolidation in the left upper lobe and extensive consolidation of the right middle and right lower lobes. Pneumonia suspected. There is significant narrowing of the right lower lobe bronchus and significant narrowing of the left mainstem, left upper lobe, and left lower lobe bronchi. There is also soft tissue debris and fluid within the right lower lobe bronchus. There are moderate-sized bilateral pleural effusions with loculated pleural effusions in the lateral aspect of both hemithoraces. There is also a fluid collection within the major fissure on the right that is probably loculated pleural fluid. Empyema or abscess should be considered. There are calcified pleural plaques on the right. 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 May be related to prior empyema or hemothorax. The heart is enlarged. There is a small pericardial effusion. No hilar or mediastinal adenopathy. There is gas within the thoracic esophagus. This probably related to GE reflux. There is degenerative disc disease throughout the thoracic spine. Impression: Abnormal exam. See above. MTDD
--- NOTE | 2019-12-28 16:52 | PCM.SN ---
- Free Text/Narrative Note: Called to see patient for unresponsiveness. On exam the patient did not respond to verbal or physical stimuli. Absent heart and breath sounds Absent peripheral pulses. Pupils are fixed and dilated. Patient pronounced at 1645. and daughter Candy at bedside.
--- NOTE | 2020-01-01 19:23 | PCM.DCSUM1 ---
Discharge Summary - Hospital Course Diagnosis: Stroke: No - Discharge Data Discharge Date: 12/28/19 Discharge Disposition: 20 Preliminary Cause of *Q: Respiratory Failure Condition: - Referral to Home Health Primary Care Physician: PCP None - Discharge Diagnosis/Problem(s) (1) Pneumonia SNOMED Code(s): 270307655 ICD Code: J18.9 - PNEUMONIA, UNSPECIFIED ORGANISM Status: Acute Priority : Medium Qualifiers: Pneumonia type: due to unspecified organism Laterality: left Lung location: lower lobe of lung Qualified Code(s): J18.9 - Pneumonia, unspecified organism - Patient Summary/Data Consults: Consultations 12/24/19 16:40 Consult to Case Management/[employer] [CONS] Routine Comment: Physician Instructions: Service(s) to be Consulted: Case Manage&Social Servic Special Instructions: out of home placement at discharge-fdc need - Discharge Plan *PRESCRIPTION DRUG MONITORING PROGRAM REVIEWED*: No *COPY OF PRESCRIPTION DRUG MONITORING REPORT IN PATIENT FAYE: No Home Medications: Home Meds Lisinopril 20 mg PO DAILY 06/12/18 [History] Forms: ED Department Discharge Referrals: PCP,None [Primary Care Provider] - - Discharge Summary/Plan Comment DC Time >30 min.: No - Patient Data Vitals - Most Recent: Last Vital Signs Temp 37.2 C 12/28/19 16:00 Pulse 110 H 12/28/19 16:00 Resp 28 H 12/28/19 12:00 BP 121/72 12/28/19 12:00 Pulse Ox 79 L 12/28/19 12:00 Weight - Most Recent: 53.524 kg Med Orders - Current: Current Medications Discontinued Medications Acetaminophen (Tylenol) 650 mg PO Q4H PRN PRN Reason: Pain (Mild 1-3)/fever Last Admin: 12/27/19 21:52 Dose: 650 mg Albuterol/Ipratropium (Duoneb 3.0-0.5 Mg/3 Ml) 3 ml NEB QID PRN PRN Reason: Shortness Of Breath/wheezing Last Admin: 12/27/19 21:58 Dose: 3 ml Azithromycin (Zithromax) 500 mg IV Q24H [facility] Furosemide (Lasix) 40 mg IVPUSH NOW ONE Stop: 12/27/19 01:15 Last Admin: 12/27/19 01:23 Dose: 40 mg Ceftriaxone Sodium 1 gm/ (Sodium Chloride) 50 mls @ 100 mls/hr IV Q24H [facility] Last Admin: 12/27/19 22:30 Dose: 100 mls/hr Sodium Chloride (Normal Saline) 1,000 mls @ 30 mls/hr IV ASDIRECTED [facility] Last Admin: 12/25/19 22:26 Dose: 30 mls/hr Azithromycin 500 mg/ Sodium (Chloride) 250 mls @ 250 mls/hr IV Q24H [facility] Last Admin: 12/27/19 21:12 Dose: 250 mls/hr Sodium Chloride (Normal Saline) 1,000 mls @ 250 mls/hr IV ASDIRECTED [facility] Last Admin: 12/24/19 10:54 Dose: 250 mls/hr Lisinopril (Prinivil) Confirm Administered Dose 20 mg .ROUTE .STK-MED ONE Stop: 12/27/19 07:48 Last Admin: 12/27/19 08:46 Dose: Not Given Lorazepam (Ativan) 1 mg IVPUSH Q6H PRN PRN Reason: Anxiety Last Admin: 12/27/19 22:28 Dose: 1 mg Methylprednisolone Sodium Succinate (Solu-Medrol) 125 mg IVPUSH Q8H [facility] Last Admin: 12/28/19 03:57 Dose: 125 mg Methylprednisolone Sodium Succinate (Solu-Medrol) Confirm Administered Dose 125 mg .ROUTE .STK-MED ONE Stop: 12/27/19 11:34 Last Admin: 12/27/19 14:43 Dose: Not Given Nicotine (Habitrol) 21 mg TRDERM DAILY [facility] Last Admin: 12/27/19 08:45 Dose: 21 mg Non-Formulary Medication (Lisinopril [Lisinopril]) 20 mg PO DAILY [facility] Last Admin: 12/27/19 07:55 Dose: 20 mg Nystatin (Nystop) 0 gm TOP BID [facility] Last Admin: 12/27/19 21:57 Dose: 2 applic Sodium Chloride (Saline Flush) 10 ml FLUSH BID PRN PRN Reason: Keep Vein Open Last Admin: 12/26/19 23:15 Dose: 10 ml Sodium Chloride (Normal Saline) 50 ml FLUSH ONETIME ONE Stop: 12/27/19 11:48 Last Admin: 12/27/19 12:00 Dose: 50 ml
--- NOTE | 2020-01-01 19:26 | PCM.PN ---
- General Info Date of Service: 12/26/19 Admission Dx/Problem (Free Text): Pneumonia Congestive Heart Failure Subjective Update: This patient had some increase in her work of breathing during the night with nursing report of increased coarseness in breath sounds. She was given lasix 40 mg IV at 0123. Her vitals have been stable and unchanged, afebrile. Labs and CXR obtained this morning and reviewed. Functional Status: Reports: Pain Controlled - Review of Systems General: Denies: Fever, Chills HEENT: Reports: No Symptoms Pulmonary: Reports: Shortness of Breath, Cough, Wheezing Cardiovascular: Denies: Chest Pain, Palpitations Gastrointestinal: Reports: No Symptoms Genitourinary: Reports: No Symptoms Musculoskeletal: Reports: No Symptoms Skin: Reports: No Symptoms Neurological: Reports: No Symptoms - Patient Data Vitals - Most Recent: Last Vital Signs Temp 37.2 C 12/28/19 16:00 Pulse 110 H 12/28/19 16:00 Resp 28 H 12/28/19 12:00 BP 121/72 12/28/19 12:00 Pulse Ox 79 L 12/28/19 12:00 Weight - Most Recent: 53.524 kg Med Orders - Current: Current Medications Discontinued Medications Acetaminophen (Tylenol) 650 mg PO Q4H PRN PRN Reason: Pain (Mild 1-3)/fever Last Admin: 12/27/19 21:52 Dose: 650 mg Albuterol/Ipratropium (Duoneb 3.0-0.5 Mg/3 Ml) 3 ml NEB QID PRN PRN Reason: Shortness Of Breath/wheezing Last Admin: 12/27/19 21:58 Dose: 3 ml Azithromycin (Zithromax) 500 mg IV Q24H MICHELLE Furosemide (Lasix) 40 mg IVPUSH NOW ONE Stop: 12/27/19 01:15 Last Admin: 12/27/19 01:23 Dose: 40 mg Ceftriaxone Sodium 1 gm/ (Sodium Chloride) 50 mls @ 100 mls/hr IV Q24H MICHELLE Last Admin: 12/27/19 22:30 Dose: 100 mls/hr Sodium Chloride (Normal Saline) 1,000 mls @ 30 mls/hr IV ASDIRECTED MICHELLE Last Admin: 12/25/19 22:26 Dose: 30 mls/hr Azithromycin 500 mg/ Sodium (Chloride) 250 mls @ 250 mls/hr IV Q24H [facility] Last Admin: 12/27/19 21:12 Dose: 250 mls/hr Sodium Chloride (Normal Saline) 1,000 mls @ 250 mls/hr IV ASDIRECTED [facility] Last Admin: 12/24/19 10:54 Dose: 250 mls/hr Lisinopril (Prinivil) Confirm Administered Dose 20 mg .ROUTE .STK-MED ONE Stop: 12/27/19 07:48 Last Admin: 12/27/19 08:46 Dose: Not Given Lorazepam (Ativan) 1 mg IVPUSH Q6H PRN PRN Reason: Anxiety Last Admin: 12/27/19 22:28 Dose: 1 mg Methylprednisolone Sodium Succinate (Solu-Medrol) 125 mg IVPUSH Q8H [facility] Last Admin: 12/28/19 03:57 Dose: 125 mg Methylprednisolone Sodium Succinate (Solu-Medrol) Confirm Administered Dose 125 mg .ROUTE .STK-MED ONE Stop: 12/27/19 11:34 Last Admin: 12/27/19 14:43 Dose: Not Given Nicotine (Habitrol) 21 mg TRDERM DAILY [facility] Last Admin: 12/27/19 08:45 Dose: 21 mg Non-Formulary Medication (Lisinopril [Lisinopril]) 20 mg PO DAILY [facility] Last Admin: 12/27/19 07:55 Dose: 20 mg Nystatin (Nystop) 0 gm TOP BID [facility] Last Admin: 12/27/19 21:57 Dose: 2 applic Sodium Chloride (Saline Flush) 10 ml FLUSH BID PRN PRN Reason: Keep Vein Open Last Admin: 12/26/19 23:15 Dose: 10 ml Sodium Chloride (Normal Saline) 50 ml FLUSH ONETIME ONE Stop: 12/27/19 11:48 Last Admin: 12/27/19 12:00 Dose: 50 ml - Exam Quality Assessment: Supplemental Oxygen General: Alert, Mild Distress HEENT: Pupils Equal, Pupils Reactive, EOMI, Mucous Membr. Moist/[place] Neck: Supple Lungs: Clear to Auscultation, Normal Respiratory Effort, Crackles, Rales, Rhonchi Cardiovascular: Regular Rate, Regular Rhythm GI/Abdominal Exam: Soft, Non-Tender, No Distention Extremities: Normal Inspection Skin: Warm, Dry, Intact Wound/Incisions: Healing Well Neurological: No New Focal Deficit Sepsis Event Note - Evaluation Sepsis Screening Result: No Definite Risk - Problem List & Annotations (1) Pneumonia SNOMED Code(s): 062677340 Code(s): J18.9 - PNEUMONIA, UNSPECIFIED ORGANISM Status: Acute Priority: Medium Qualifiers: Pneumonia type: due to unspecified organism Laterality: left Lung location: lower lobe of lung Qualified Code(s): J18.9 - Pneumonia, unspecified organism - Problem List Review Problem List Initiated/Reviewed/Updated: No - Assessment Assessment:: Pneumonia Waiting for placement 12/27/2019 pneumonia CHD - Plan Plan:: Oxygen to keep SaO2 greater than 90% COVID and influenza samples collected Continue with same plan 12/26/19 Continue with same plan 12/27/2019 Patient's clinical picture has improved some; however, her CXR shows significant pathology on left side. Consulted via phone with Dr. Vela, [facility] who reviewed films, labs, and clinical findings with me. Plan: 1) Chest CT with contrast 2) Continue antibiotics 3) Start solumedrol, 125 mg q. 8 4) Daily weights 5) Strict I&O
== END 2019-12-28 16:45 | disposition expired | DRG 193 ==
LOC: LB.ED 19:01 → LB.MS 21:25 → UNDOADMOB 22:00 → OBSVTOIN 12-24 16:37
PROVIDERS: ADMIT Nurse Practitioner; ATTEND Nurse Practitioner
PROC: 8E0ZXY6 Isolation (ICD-10-PCS; principal; 2019-12-24)
DX: J18.9 Pneumonia, unspecified organism (principal); J96.21 Acute and chronic respiratory failure with hypoxia; R09.02 Hypoxemia; R53.1 Weakness; J44.0 Chronic obstructive pulmonary disease with (acute) lower respiratory infection; E86.0 Dehydration; I11.0 Hypertensive heart disease with heart failure; I50.9 Heart failure, unspecified; F17.210 Nicotine dependence, cigarettes, uncomplicated
CPT/HCPCS: 36415; 71045; 71260; 80048; 81003; 83880; 85025; 87804; 87804-59; 96361; 96365; 96367; 99222; 99231; 99232; 99238; 99285-25; A9270-GY; G0378; J0456; J0696; J1940; J2060; J2930; J7030; J7050; J7620-GY; U0001; U0002